=== PATIENT | male | born 1980 | race Two or more races ===

== ENCOUNTER 2021-08-11 07:39 | Day surgery (SDC) | payer OTHER ==
[2021-07-26 15:16] LABS: Urine Bacteria NONE SEEN /hpf (None Seen); Urine Blood TRACE /uL (Negative); Urine Specific Gravity 1.006 (1.001-1.035); Urine WBC 1 /hpf (0 - 3)
[2021-07-26 15:23] LABS: Basophils # (auto) 0.2 10 ^3/uL (0-0.2); Basophils % (auto) 3.6 % (0.0-2.0); Eosinophils # (auto) 0.1 10 ^3/uL (0-0.8); Eosinophils % (auto) 2.4 % (0.0-7.0); Hematocrit 46.8 % (41.0-53.0); Hemoglobin 15.9 g/dL (13.5-17.5); Lymphocytes % (auto) 35.1 % (10.0-50.0); Mean Corpuscular Volume 88.3 fL (80.0-100.0); Monocytes # (auto) 0.4 10 ^3/uL (0-1.3); Monocytes % (auto) 7.5 % (0.0-12.0); Neutrophils % (auto) 51.4 % (37.0-80.0); Nucleated Red Blood Cells % 0.1 %; Red Cell Distribution Width 14.2 % (11.8-14.3); White Blood Cell 5.8 10^3/uL (4.4-10.8)
[2021-07-26 15:26] LABS: INR 1.01 (0.9-1.15); Partial Thromboplastin Time 33.1 sec (23.6-33.0)
[2021-07-26 15:32] LABS: BUN/Creatinine Ratio 13.5; Bilirubin, Total 0.7 mg/dL (0.2-1.0); Total Protein 7.1 g/dL (6.4-8.2)
[2021-08-09 14:47] LABS: Urine WBC None Seen /hpf (0 - 3)
[2021-08-09 14:53] LABS: Basophils # (auto) 0.1 10 ^3/uL (0-0.2); Basophils % (auto) 1.1 % (0.0-2.0); Eosinophils # (auto) 0.2 10 ^3/uL (0-0.8); Eosinophils % (auto) 2.8 % (0.0-7.0); Hematocrit 44.7 % (41.0-53.0); Hemoglobin 15.7 g/dL (13.5-17.5); Lymphocytes # (auto) 2.1 10 ^3/uL (0.4-5.4); Lymphocytes % (auto) 31.6 % (10.0-50.0); Mean Corpuscular Hemoglobin 30.8 pg (28.0-32.0); Mean Corpuscular Hgb Conc. 35.1 g/dL (32.0-36.0); Mean Corpuscular Volume 87.8 fL (80.0-100.0); Monocytes # (auto) 0.7 10 ^3/uL (0-1.3); Monocytes % (auto) 10.3 % (0.0-12.0); Neutrophils # (auto) 3.6 10 ^3/uL (1.6-8.6); Neutrophils % (auto) 54.2 % (37.0-80.0); Nucleated Red Blood Cells % 0.3 %; Red Blood Cells 5.09 10^6/uL (4.5-5.90); Red Cell Distribution Width 14.3 % (11.8-14.3); White Blood Cell 6.7 10^3/uL (4.4-10.8)
[2021-08-09 14:55] LABS: Urine Bacteria NONE SEEN /hpf (None Seen); Urine Blood Negative /uL (Negative); Urine Specific Gravity 1.008 (1.001-1.035)
[2021-08-09 15:04] LABS: INR 0.99 (0.9-1.15); Partial Thromboplastin Time 29.7 sec (23.6-33.0)
[2021-08-09 15:23] LABS: Albumin 3.7 g/dL (3.4-5.0); Calcium 8.1 mg/dL (8.5-10.1)
[2021-08-09 15:26] LABS: BUN/Creatinine Ratio 11.2; Total Protein 6.9 g/dL (6.4-8.2)
[~2021-08-11] VITALS: Ht 182.9 cm; Wt 111.1 kg
[2021-08-11] MEDS ORDERED: SUCCINYLCHOLINE CHLORIDE 20 MG/ML 10ML VIAL IV ONE (07:40)
[2021-08-11] MEDS ORDERED: ceFAZolin 1GM/50ML 100 ML IV ONE (07:48)
[2021-08-11] MEDS ORDERED: MORPHINE SULFATE 4 MG/ML SYR/VIAL IV PRN (08:45)
[2021-08-11] MEDS ORDERED: HYDROmorphone HCL 2 MG/ML VL/or syr IV PRN ×4 (08:45→11:15)
[2021-08-11] MEDS ORDERED: METOCLOPRAMIDE HCL 5MG/ml INJ 2ml VIAL IV PRN (08:45)
[2021-08-11] MEDS ORDERED: BUPIVACAINE W/ EPINEPH 0.5% INJ 50ML MDV IJ ONE (09:35)
[2021-08-11] MEDS ORDERED: LIDOCAINE 1%-Mpf/Epinephrine 1:200,000 ONE (09:37)
[2021-08-11] MEDS ORDERED: fentaNYL CITRATE 100 MCG/2 ML VL ONE (09:40)
[2021-08-11] MEDS ORDERED: ROCURONIUM 10MG/ML 10ML VIAL IV ONE (09:41)
[2021-08-11] MEDS ORDERED: MIDAZOLAM HCL 2MG/2ML 2ml VIAL (1mg/ml) ONE (09:41)
[2021-08-11] MEDS ORDERED: PROPOFOL 10 MG/ML 20 ML IV ONE (09:47)
[2021-08-11] MEDS ORDERED: NEOSTIGMINE 1 MG/ML INJ (10mg/10ML VIAL) ONE (10:53)
[2021-08-11] MEDS ORDERED: ONDANSETRON HCL 4 MG/2 ML VIAL ONE (10:53)
[2021-08-11] MEDS ORDERED: GLYCOPYRROLATE 0.2 MG/ML 1ML VIAL ONE (10:53)
[2021-08-11] MEDS ORDERED: LIDOCAINE 2% (LOCAL ANESTH.) PF 5ml SDV ONE (10:53)
[2021-08-11] MEDS ORDERED: ONDANSETRON HCL 4 MG/2 ML VIAL IV PRN (11:15)
[2021-08-11] MEDS ORDERED: KETOROLAC TROMETH 60MG/2ML VIAL ONE (11:32)
[2021-08-11] MEDS ORDERED: KETOROLAC TROMETH 60MG/2ML VIAL IV ONE (11:35)
[2021-08-11] MEDS ORDERED: KETOROLAC TROMETH 60MG/2ML VIAL IM ONE (11:42)
[2021-08-11 11:45] VITALS: BP 107/58
== END 2021-08-11 11:45 | disposition home or self-care (01) ==
LOC: SUR 07:39
PROVIDERS: ATTEND Surgery
DX: K40.90 Unilateral inguinal hernia, without obstruction or gangrene, not specified as recurrent (principal); E66.9 Obesity, unspecified; G40.909 Epilepsy, unspecified, not intractable, without status epilepticus; F17.200 Nicotine dependence, unspecified, uncomplicated; Z68.33 Body mass index [BMI] 33.0-33.9, adult; Z20.822 Contact with and (suspected) exposure to COVID-19
CPT/HCPCS: 36415; 49505; 80053; 81001; 85025; 85610; 85730; 86850; 86900; 86901; C1781; J0330; J0690; J1885; J2001; J2250; J2405; J2704; J3010; U0003

== ENCOUNTER 2022-08-17 07:01 | Day surgery (SDC) | payer OTHER ==
[2022-08-15 12:04] LABS: Basophils # (auto) 0.1 10 ^3/uL (0-0.2); Basophils % (auto) 1.2 % (0.0-2.0); Eosinophils # (auto) 0.2 10 ^3/uL (0-0.8); Eosinophils % (auto) 3.2 % (0.0-7.0); Lymphocytes # (auto) 2.3 10 ^3/uL (0.4-5.4); Lymphocytes % (auto) 35.6 % (10.0-50.0); Mean Corpuscular Hemoglobin 29.7 pg (28.0-32.0); Mean Corpuscular Hgb Conc. 34.1 g/dL (32.0-36.0); Mean Corpuscular Volume 87.1 fL (80.0-100.0); Monocytes # (auto) 0.5 10 ^3/uL (0-1.3); Monocytes % (auto) 8.3 % (0.0-12.0); Neutrophils # (auto) 3.4 10 ^3/uL (1.6-8.6); Neutrophils % (auto) 51.7 % (37.0-80.0); Nucleated Red Blood Cells % 0.2 %; Red Cell Distribution Width 14.6 % (11.8-14.3); White Blood Cell 6.6 10^3/uL (4.4-10.8)
[2022-08-15 12:29] LABS: Urine Amorphous Crystal FEW /hpf (None Seen); Urine Bacteria NONE SEEN /hpf (None Seen); Urine Blood Negative /uL (Negative); Urine Mucus FEW (None Seen); Urine Specific Gravity 1.027 (1.001-1.035); Urine WBC 2 /hpf (0 - 3)
[2022-08-15 13:01] LABS: Albumin 3.5 g/dL (3.4-5.0); Calcium 8.4 mg/dL (8.5-10.1); INR 0.98 (0.9-1.15); Partial Thromboplastin Time 28.8 SEC (24.5-34.5); Potassium 4.2 mmol/L (3.5-5.1)
[2022-08-15 13:02] LABS: BUN/Creatinine Ratio 18.8 (10.0-20.0)
[2022-08-15 13:05] LABS: Bilirubin, Total 0.4 mg/dL (0.2-1.0); Total Protein 6.8 g/dL (6.4-8.2)
[~2022-08-17] VITALS: Ht 182.9 cm; Wt 108.9 kg
[2022-08-17] MEDS ORDERED: ceFAZolin 1GM/50ML 100 ML IV ONE (07:08)
[2022-08-17] MEDS ORDERED: MEPERIDINE HCL (50 MG/ML) 1 ML VIAL ONE (07:50)
[2022-08-17] MEDS ORDERED: ONDANSETRON HCL 4 MG/2 ML VIAL ONE (07:50)
[2022-08-17] MEDS ORDERED: MIDAZOLAM HCL 2MG/2ML 2ml VIAL (1mg/ml) ONE (07:50)
[2022-08-17] MEDS ORDERED: ROCURONIUM 10MG/ML 10ML VIAL IV ONE (07:50)
[2022-08-17] MEDS ORDERED: GLYCOPYRROLATE 0.2 MG/ML 1ML VIAL ONE (07:50)
[2022-08-17] MEDS ORDERED: PROPOFOL 10 MG/ML 20 ML IV ONE (07:50)
[2022-08-17] MEDS ORDERED: SODIUM CHLORIDE LOCK 10 ML ONE (07:50)
[2022-08-17] MEDS ORDERED: fentaNYL CITRATE 100 MCG/2 ML VL ONE (07:50)
[2022-08-17] MEDS ORDERED: NEOSTIGMINE 1 MG/ML INJ (10mg/10ML VIAL) ONE (07:50)
[2022-08-17] MEDS ORDERED: BUPIVACAINE IMPLANT 3x100mg IL ONE (08:00)
[2022-08-17] MEDS ORDERED: MORPHINE SULFATE INJ 2 MG/ml SYRG IV PRN (08:15)
[2022-08-17] MEDS ORDERED: HYDROmorphone HCL 2 MG/ML VL/or syr IV PRN ×2 (08:15)
[2022-08-17] MEDS ORDERED: METOCLOPRAMIDE HCL 5MG/ml INJ 2ml VIAL IV PRN (08:15)
[2022-08-17] MEDS ORDERED: ePHEDrine SULFATE 50 MG/ML AMP ONE (09:15)
[2022-08-17] MEDS ORDERED: KETOROLAC TROMETH 60MG/2ML VIAL IM ONE (10:15)
[2022-08-17] MEDS ORDERED: KETOROLAC TROMETH 30 MG/ML 1ML VIAL IV ONE (10:15)
[2022-08-17 10:55] VITALS: BP 117/65
== END 2022-08-17 11:08 | disposition home or self-care (01) ==
LOC: SUR 07:01
PROVIDERS: ATTEND Surgery
DX: K40.91 Unilateral inguinal hernia, without obstruction or gangrene, recurrent (principal); F17.210 Nicotine dependence, cigarettes, uncomplicated; Z98.890 Other specified postprocedural states
CPT/HCPCS: 36415; 49520; 80053; 81001; 85025; 85610; 85730; 86850; 86900; 86901; C1781; C9089; J0690; J1170; J2175; J2250; J2405; J2704; J3010